=== PATIENT | male | born 1995 | race Caucasian/White ===

== ENCOUNTER 2023-11-12 23:39 | Emergency (ER) | payer OTHER ==
[~2023-11-12] VITALS: Ht 190.5 cm; Wt 80.0 kg
[~2023-11-12 23:39] MED LIST: DOXYCYCLINE HY100 MG PO
[2023-11-12] MEDS ORDERED: CENTANY30 GM TOP (23:56)
[2023-11-13 00:03] VITALS: BP 147/97
== END 2023-11-13 00:04 | disposition home or self-care (01) ==
LOC: ED 23:39
DX: L01.00 Impetigo, unspecified (principal)
CPT/HCPCS: 99282

== ENCOUNTER 2024-04-29 03:10 | Emergency (ER) | payer OTHER ==
[~2024-04-29] VITALS: Ht 190.5 cm; Wt 85.7 kg
[~2024-04-29 03:10] MED LIST changes: +CENTANY30 GM TOP
[2024-04-29] MEDS ORDERED: DOXYCYCLINE HYCLATE 100 MG CAP PO ONE (03:30)
[2024-04-29] MEDS ORDERED: DOXYCYCLINE HY100 MG PO (03:30)
[2024-04-29 03:37] VITALS: BP 126/79
== END 2024-04-29 03:38 | disposition home or self-care (01) ==
LOC: ED 03:10
DX: S00.12XA Contusion of left eyelid and periocular area, initial encounter (principal); L03.114 Cellulitis of left upper limb; Z59.00 Homelessness unspecified; X58.XXXA Exposure to other specified factors, initial encounter
CPT/HCPCS: 99283

== ENCOUNTER 2024-05-25 13:13 | Emergency (ER) | payer OTHER ==
[~2024-05-25] VITALS: Ht 190.5 cm; Wt 78.1 kg
--- OUTSIDE RECORDS SUMMARY | 2024-05-25 13:19 | XMS ---
PreManage Notification: HO SARABIA [employer] Supervisor Events No recent Security Events currently on file CRITERIA MET - [facility] - 2 Visits in 30 Days CARE PROVIDERS There are no care providers on record at this time. Kayla has no Care Guidelines for this patient. Marleni VISIT COUNT (12 MO.) 3 [facility]. TOTAL 3 NOTE: Visits indicate total known visits. ED/[facility] VISIT TRACKING (12 MO.) 05/25/2024 13:13 [facility] [place] TYPE: Emergency COMPLAINT: - DIFFICULTY BREATHING 04/29/2024 03:10 [facility] [place] TYPE: Emergency COMPLAINT: - HEAD INJURY DIAGNOSES: - Cellulitis of left upper limb - Contusion of left eyelid and periocular area, initial encounter - Exposure to other specified factors, initial encounter - Homelessness unspecified - Unspecified injury of head, initial encounter 11/12/2023 23:40 [facility] [place] TYPE: Emergency COMPLAINT: - SKIN ISSUES DIAGNOSES: - Impetigo, unspecified - Insect bite (nonvenomous) of other part of head, initial encounter INPATIENT VISIT TRACKING (12 MO.) No inpatient visits to display in this time frame [email or web address]
[2024-05-25] MEDS ORDERED: NALOXONE 4 MG NASAL SPRAY #2 HOME.PACK NAS ONE (15:00)
[2024-05-25 16:40] VITALS: BP 102/66
== END 2024-05-25 16:40 | disposition home or self-care (01) ==
LOC: ED 13:13
DX: T40.411A Poisoning by fentanyl or fentanyl analogs, accidental (unintentional), initial encounter (principal)
CPT/HCPCS: 99284; J3490